=== PATIENT | male | born 1975 | race Two or more races ===

== ENCOUNTER 2024-08-12 19:54 | Emergency (ER) | payer OTHER, SELFPAY ==
[2024-08-12 19:55] VITALS: BMI 33.3
[2024-08-12 20:12] VITALS: BP 145/86; PULSE 82; RESP 16; TEMP 36.8; O2SAT 96
--- NOTE | 2024-08-12 20:28 | EDNOTE_ITS ---
ED Wound/Laceration-RME/HPI General Chief Complaint: Wound/Laceration Stated Complaint: CUT THUMB WHILE AT WORK Time Seen by Provider: 08/12/24 20:15 Arrival date/time: 08/12/24 19:54 RME / HPI RME / HPI narrative: 49-year-old [id number] male presents to the ED with a complaint of a laceration to his right thumb secondary to an injury he sustained at work. Patient states that he was cutting food, holding the food with his right hand when the knife slipped and cut him on the right distal thumb. He states his last tetanus was approximately 6 years ago. Related Data Allergies Allergy/AdvReac Type Severity Reaction Status Date / Time No Known Allergies Allergy Verified 08/12/24 19:55 Review of Systems Review of Systems Systems Reviewed: All systems reviewed, normal except as documented Past Medical History Social History SMOKING STATUS: Never smoker ED Exam Narrative Physical exam: Alert and oriented, very pleasant 49-year-old male, [id number], no acute distress. No respiratory distress noted. Right thumb wrapped in gauze. Gauze removed to reveal a laceration through the nailbed and medial distal thumb. Flap is intact. CMS intact distally. Bleeding is controlled with direct pressure. Course Orders Category Date Time Status Set Up Suture Tray STAT Care 08/12/24 20:32 Active XR finger RT min 2V Stat Exams 08/12/24 20:31 Completed Vital Signs Vital signs: Vital Signs Temperature 98.3 F 08/12/24 20:12 Pulse Rate 82 08/12/24 20:12 Respiratory Rate 16 08/12/24 20:12 Blood Pressure 145/86 H 08/12/24 20:12 Pulse Oximetry (%) 96 08/12/24 20:12 Oxygen Delivery Method Room Air 08/12/24 20:12 Discharge Plan Plan Patient Disposition: HOME (Self Care) Discharge Disposition comment: Stable and improved Prescriptions/Referrals Referrals: No Primary/Family,Physician [Primary Care Provider] - In 1 week Problem List Clinical Impression: Laceration, Nailbed laceration, finger Patient/Caregiver Discharge Instructions Education Materials: ED Laceration: All Closures Additional Instructions: Keep the wound clean and dry, do not expose it to excessive amounts of moisture. Tylenol or ibuprofen for pain control. Bentley un seguimiento con dhaliwal medico de atencion primaria en 24 a 48 horas. Regresar al departamento de emergencias por cualquier sintoma nuevo o que empeore. Print Language: Irish Stand Alone Forms: Lexie Award Info., Work/School Release, Patient Portal Info Letter PA/GENERAL CLAIMS AGENT Supervising Physician PA/GENERAL CLAIMS AGENT Supervising Physician: Dr Gonzalez
--- NOTE | 2024-08-12 20:31 | XR_ITS ---
Examination: Fingers, right hand first digit 3 views Technique: AP, oblique, lateral views right hand first digit 3 views. Exam date and time: August 12, 20242035 hours INDICATIONS: Laceration to the first digit today, pain FINDINGS: No fracture No opaque foreign body. IMPRESSION: No opaque foreign body
== END 2024-08-13 00:24 | disposition home or self-care (01) ==
PROVIDERS: Emergency Provider Emergency Medicine
DX: S61.011A Laceration without foreign body of right thumb without damage to nail, initial encounter (principal); W26.0XXA Contact with knife, initial encounter; Y93.G1 Activity, food preparation and clean up; Y92.511 Restaurant or cafe as the place of occurrence of the external cause; Y99.0 Civilian activity done for income or pay
CPT/HCPCS: 12002; 73140; 99283